=== PATIENT | female | born 1965 | race Caucasian/White ===

== ENCOUNTER 2024-09-30 14:30 | Inpatient (IN) | payer OTHER, MEDICAID ==
[2024-09-30] MEDS: Sodium Chloride 0.9% 10 ML Syringe FLUSH PRN (15:31)
[2024-09-30] MEDS: Ondansetron 4 MG/2 ML SDV IVPUSH ONE (15:59)
[2024-09-30 16:07] LABS: APPEARANCE,URINE SLT CLOUDY (Clear); GLUCOSE,URINE NEGATIVE (Negative); OCCULT BLOOD,URINE NEGATIVE (Negative)
[2024-09-30 16:43] LABS: PCO2 VENOUS 32.0 mmHg (41-51); PH,VENOUS 7.43 (7.30-7.40); PO2 VENOUS 123.0 mmHG (40-80)
[2024-09-30 16:44] LABS: BASE EXCESS VENOUS -2.3 (-4.0-2.0); BICARBONATE,VENOUS 21.2 meq/L (22-26); O2 SATURATION VENOUS 100
[2024-09-30] MEDS: 50% Dextrose in Water 50 ML Syringe IVPUSH PRN (16:48)
[2024-09-30 16:49] LABS: BASOPHILS ABSOLUTE AUTO 0.0 K/mm3 (0.0-0.2); BASOPHILS PERCENT AUTO 0.2 % (0.0-1.0); EOSINOPHILS ABSOLUTE AUTO 0.1 K/mm3 (0.0-0.4); EOSINOPHILS PERCENT AUTO 0.3 % (0.0-6.0); IMMATURE GRAN ABSOLUTE AUTO 0.20 K/mm3 (0.00-0.05); IMMATURE GRAN PERCENT AUTO 1.0 % (0.0-0.4); LYMPHOCYTES ABSOLUTE AUTO 2.3 K/mm3 (1.0-4.8); LYMPHOCYTES PERCENT AUTO 11.6 % (24.0-44.0); MEAN PLATELET VOLUME 10.6 fl (9.4-12.3); MONOCYTES ABSOLUTE AUTO 1.5 K/mm3 (0.0-0.8); MONOCYTES PERCENT AUTO 7.6 % (0.0-8.0); NEUTROPHILS ABSOLUTE AUTO 15.4 K/mm3 (1.8-7.7); NEUTROPHILS PERCENT AUTO 79.3 % (41.0-71.0); NRBC ABSOLUTE 0.02 (0.00-0.02); NRBC PERCENT 0.1 % (0.0-0.2); PLATELET COUNT,PLT 276 K/mm3 (150-400); RED BLOOD CELL COUNT 3.40 M/mm3 (4.10-5.30); WHITE BLOOD CELL COUNT,WBC 19.48 K/mm3 (3.9-11.3)
[2024-09-30 17:04] LABS: SQUAMOUS EPITHELIAL CELLS,UR 0-5 /hpf (0-5)
[2024-09-30 17:15] LABS: A/G RATIO 0.9 (1-2); ALANINE AMINOTRANSFERASE,ALT 74 U/L (14-59); ASPARTATE AMNIOTRANSFERASE,AST 140 U/L (15-37); BILIRUBIN TOTAL 5.6 mg/dL (0.2-1.0); BLOOD UREA NITROGEN,BUN 23 mg/dL (7-18); CARBON DIOXIDE,CO2 27 mEq/L (21-32); CHLORIDE,CL 85 mEq/L (98-107); ESTIMATED GFR 40 mL/min (>60); POTASSIUM,K 4.3 mEq/L (3.5-5.1); SODIUM,NA 127 mEq/L (136-145); TROPONIN I HIGH SENSITIVITY 13 pg/mL (<=51); TSH 1.732 uIU/mL (0.358-3.74)
[2024-09-30] MEDS: Albuterol 0.083% 2.5 MG/3 ML Neb Soln NEB ONE (17:19)
[2024-09-30 17:20] LABS: ETHANOL BLOOD MEDICAL 0.00 gm% (0.00); GLUCOSE RANDOM 2 mg/dL (70-99)
[2024-09-30 17:21] LABS: CREATININE 1.5 mg/dL (0.55-1.02)
[2024-09-30 17:22] LABS: PROTEIN TOTAL,TP 6.6 g/dl (6.4-8.2)
[2024-09-30] MEDS: Lactated Ringers 1,000 ML IV ONE (17:40)
[2024-09-30] MEDS: Lactated Ringers 1,000 ML ONE (18:47)
[2024-09-30] MEDS: Lactulose Soln 10 GM/15 ML 30 ML UD Cup PO SCH (19:50)
[2024-09-30 20:22] LABS: CREATINE KINASE,CK 173.0 U/L (26-192); PHOSPHORUS 6.3 mg/dL (2.6-4.7)
[2024-09-30] MEDS: Ondansetron 4 MG/2 ML SDV IVPUSH PRN (20:31)
[2024-09-30 21:04] LABS: INR 1.64
[2024-10-01] MEDS: Midazolam 1 MG/ML 2 ML SDV IVPUSH ONE (00:21)
[2024-10-01 04:43] LABS: BASOPHILS ABSOLUTE AUTO 0.0 K/mm3 (0.0-0.2); BASOPHILS PERCENT AUTO 0.2 % (0.0-1.0); EOSINOPHILS ABSOLUTE AUTO 0.1 K/mm3 (0.0-0.4); EOSINOPHILS PERCENT AUTO 0.6 % (0.0-6.0); IMMATURE GRAN ABSOLUTE AUTO 0.14 K/mm3 (0.00-0.05); IMMATURE GRAN PERCENT AUTO 0.6 % (0.0-0.4); LYMPHOCYTES ABSOLUTE AUTO 2.2 K/mm3 (1.0-4.8); LYMPHOCYTES PERCENT AUTO 10.2 % (24.0-44.0); MEAN PLATELET VOLUME 10.5 fl (9.4-12.3); MONOCYTES ABSOLUTE AUTO 0.8 K/mm3 (0.0-0.8); MONOCYTES PERCENT AUTO 3.5 % (0.0-8.0); NEUTROPHILS ABSOLUTE AUTO 18.5 K/mm3 (1.8-7.7); NEUTROPHILS PERCENT AUTO 84.9 % (41.0-71.0); NRBC ABSOLUTE 0.00 (0.00-0.02); NRBC PERCENT 0.0 % (0.0-0.2); PLATELET COUNT,PLT 254 K/mm3 (150-400); RED BLOOD CELL COUNT 2.78 M/mm3 (4.10-5.30); WHITE BLOOD CELL COUNT,WBC 21.76 K/mm3 (3.9-11.3)
[2024-10-01 05:18] LABS: A/G RATIO 0.8 (1-2); ALANINE AMINOTRANSFERASE,ALT 66.0 U/L (14-59); ASPARTATE AMNIOTRANSFERASE,AST 150.0 U/L (15-37); BILIRUBIN TOTAL 4.7 mg/dL (0.2-1.0); BLOOD UREA NITROGEN,BUN 28.0 mg/dL (7-18); CARBON DIOXIDE,CO2 19.0 mEq/L (21-32); CHLORIDE,CL 86.0 mEq/L (98-107); EST CRCL DRUG DOSING (CG) 21.79 mL/min; ESTIMATED GFR 24.0 mL/min (>60); GLUCOSE RANDOM 197.0 mg/dL (70-99); POTASSIUM,K 3.0 mEq/L (3.5-5.1); SODIUM,NA 126.0 mEq/L (136-145)
[2024-10-01 05:24] LABS: CREATININE 2.3 mg/dL (0.55-1.02)
[2024-10-01 05:25] LABS: PROTEIN TOTAL,TP 5.6 g/dl (6.4-8.2)
[2024-10-01] MEDS ORDERED: Naloxone 0.4 MG/ML SDV IVPUSH PRN (12:23)
[2024-10-01 12:28] LABS: BLOOD UREA NITROGEN,BUN 28.0 mg/dL (7-18); CARBON DIOXIDE,CO2 22.0 mEq/L (21-32); CHLORIDE,CL 93.0 mEq/L (98-107); CREATININE 2.0 mg/dL (0.55-1.02); EST CRCL DRUG DOSING (CG) 25.05 mL/min; ESTIMATED GFR 28.0 mL/min (>60); GLUCOSE RANDOM 139.0 mg/dL (70-99); POTASSIUM,K 3.4 mEq/L (3.5-5.1); SODIUM,NA 128.0 mEq/L (136-145)
[2024-10-01] MEDS: Benzocaine/Cetylpyridinium/Menthol Lozenge MUCMEM PRN (13:06)
[2024-10-01 13:31] LABS: BUPRENORPHINE SCREEN,URINE NEGATIVE (CUTOFF=10); METHADONE SCREEN, URINE NEGATIVE (CUTOFF=200); METHAMPHETAMINES SCREEN, URINE NEGATIVE (CUTOFF=500); OXYCODONE SCREEN,URINE NEGATIVE (CUT0FF=100); THC SCREEN,URINE 20 NG/ML NEGATIVE (CUTOFF=50)
[2024-10-01 13:54] LABS: AMPHETAMINES SCREEN, URINE NEGATIVE (CUTOFF=500)
[2024-10-01] MEDS: Heparin Sodium 5,000 Units/ML Vial SUBCUT SCH (18:14)
[2024-10-01] MEDS: Potassium Chloride 20 MEQ Tab.ER PO SCH (21:57)
[2024-10-02 03:40] LABS: BASOPHILS ABSOLUTE AUTO 0.0 K/mm3 (0.0-0.2); BASOPHILS PERCENT AUTO 0.1 % (0.0-1.0); EOSINOPHILS ABSOLUTE AUTO 0.0 K/mm3 (0.0-0.4); EOSINOPHILS PERCENT AUTO 0.0 % (0.0-6.0); IMMATURE GRAN ABSOLUTE AUTO 0.13 K/mm3 (0.00-0.05); IMMATURE GRAN PERCENT AUTO 0.8 % (0.0-0.4); LYMPHOCYTES ABSOLUTE AUTO 1.6 K/mm3 (1.0-4.8); LYMPHOCYTES PERCENT AUTO 9.7 % (24.0-44.0); MEAN PLATELET VOLUME 10.3 fl (9.4-12.3); MONOCYTES ABSOLUTE AUTO 0.5 K/mm3 (0.0-0.8); MONOCYTES PERCENT AUTO 3.2 % (0.0-8.0); NEUTROPHILS ABSOLUTE AUTO 14.4 K/mm3 (1.8-7.7); NEUTROPHILS PERCENT AUTO 86.2 % (41.0-71.0); NRBC ABSOLUTE 0.00 (0.00-0.02); NRBC PERCENT 0.0 % (0.0-0.2); PLATELET COUNT,PLT 186 K/mm3 (150-400); RED BLOOD CELL COUNT 2.69 M/mm3 (4.10-5.30); WHITE BLOOD CELL COUNT,WBC 16.66 K/mm3 (3.9-11.3)
[2024-10-02 04:08] LABS: A/G RATIO 0.8 (1-2); ALANINE AMINOTRANSFERASE,ALT 80.0 U/L (14-59); ASPARTATE AMNIOTRANSFERASE,AST 181.0 U/L (15-37); BILIRUBIN TOTAL 4.0 mg/dL (0.2-1.0); BLOOD UREA NITROGEN,BUN 32.0 mg/dL (7-18); CARBON DIOXIDE,CO2 23.0 mEq/L (21-32); CHLORIDE,CL 99.0 mEq/L (98-107); CREATININE 1.4 mg/dL (0.55-1.02); EST CRCL DRUG DOSING (CG) 35.79 mL/min; ESTIMATED GFR 43.0 mL/min (>60); GLUCOSE RANDOM 104.0 mg/dL (70-99); POTASSIUM,K 3.3 mEq/L (3.5-5.1); PROTEIN TOTAL,TP 5.6 g/dl (6.4-8.2); SODIUM,NA 134.0 mEq/L (136-145)
[2024-10-02] MEDS: Formoterol/Mometasone 200-5 MCG 8.8 GM Inhaler INH SCH (08:43)
[2024-10-02] MEDS: Benzocaine 20% Oral Spray 59.2 ML Canister MUCMEM PRN (12:57)
[2024-10-02] MEDS: methylPREDNISolone Sodium Succinate 40 MG/1 ML SDV IVPUSH SCH (12:58)
[2024-10-03 05:41] LABS: BASOPHILS ABSOLUTE AUTO 0.0 K/mm3 (0.0-0.2); BASOPHILS PERCENT AUTO 0.1 % (0.0-1.0); EOSINOPHILS ABSOLUTE AUTO 0.0 K/mm3 (0.0-0.4); EOSINOPHILS PERCENT AUTO 0.0 % (0.0-6.0); IMMATURE GRAN ABSOLUTE AUTO 0.09 K/mm3 (0.00-0.05); IMMATURE GRAN PERCENT AUTO 0.9 % (0.0-0.4); LYMPHOCYTES ABSOLUTE AUTO 0.8 K/mm3 (1.0-4.8); LYMPHOCYTES PERCENT AUTO 8.1 % (24.0-44.0); MEAN PLATELET VOLUME 10.6 fl (9.4-12.3); MONOCYTES ABSOLUTE AUTO 0.1 K/mm3 (0.0-0.8); MONOCYTES PERCENT AUTO 1.3 % (0.0-8.0); NEUTROPHILS ABSOLUTE AUTO 8.8 K/mm3 (1.8-7.7); NEUTROPHILS PERCENT AUTO 89.6 % (41.0-71.0); NRBC ABSOLUTE 0.00 (0.00-0.02); NRBC PERCENT 0.0 % (0.0-0.2); PLATELET COUNT,PLT 167 K/mm3 (150-400); RED BLOOD CELL COUNT 2.53 M/mm3 (4.10-5.30); WHITE BLOOD CELL COUNT,WBC 9.78 K/mm3 (3.9-11.3)
[2024-10-03 06:27] LABS: A/G RATIO 0.8 (1-2); ALANINE AMINOTRANSFERASE,ALT 98.0 U/L (14-59); ASPARTATE AMNIOTRANSFERASE,AST 187.0 U/L (15-37); BILIRUBIN TOTAL 3.4 mg/dL (0.2-1.0); BLOOD UREA NITROGEN,BUN 34.0 mg/dL (7-18); CARBON DIOXIDE,CO2 22.0 mEq/L (21-32); CHLORIDE,CL 105.0 mEq/L (98-107); CREATININE 1.0 mg/dL (0.55-1.02); EST CRCL DRUG DOSING (CG) 50.11 mL/min; ESTIMATED GFR 65.0 mL/min (>60); GLUCOSE RANDOM 160.0 mg/dL (70-99); POTASSIUM,K 3.1 mEq/L (3.5-5.1); PROTEIN TOTAL,TP 5.7 g/dl (6.4-8.2); SODIUM,NA 139.0 mEq/L (136-145)
[2024-10-03] MEDS: Potassium Phosphates 30 MMOLE in Sodium Chloride 0.9% 500 ML IV ONE (10:06)
[2024-10-03] MEDS: Acetaminophen/HYDROcodone 325-5 MG Tab PO PRN (10:13)
[2024-10-03] MEDS: Potassium Chloride 20 MEQ Tab.ER PO ONE (10:13)
[2024-10-03 11:03] LABS: IRON,FE 124 ug/dL (50-170); PERCENT FE SATURATION 107 % (20-55)
[2024-10-03 19:42] LABS: ACTH 23.3 pg/mL (7.2-63.3)
[2024-10-04 06:30] LABS: BASOPHILS ABSOLUTE AUTO 0.0 K/mm3 (0.0-0.2); BASOPHILS PERCENT AUTO 0.1 % (0.0-1.0); EOSINOPHILS ABSOLUTE AUTO 0.0 K/mm3 (0.0-0.4); EOSINOPHILS PERCENT AUTO 0.1 % (0.0-6.0); IMMATURE GRAN ABSOLUTE AUTO 0.13 K/mm3 (0.00-0.05); IMMATURE GRAN PERCENT AUTO 1.3 % (0.0-0.4); LYMPHOCYTES ABSOLUTE AUTO 1.2 K/mm3 (1.0-4.8); LYMPHOCYTES PERCENT AUTO 11.7 % (24.0-44.0); MEAN PLATELET VOLUME 9.7 fl (9.4-12.3); MONOCYTES ABSOLUTE AUTO 0.3 K/mm3 (0.0-0.8); MONOCYTES PERCENT AUTO 3.4 % (0.0-8.0); NEUTROPHILS ABSOLUTE AUTO 8.3 K/mm3 (1.8-7.7); NEUTROPHILS PERCENT AUTO 83.4 % (41.0-71.0); NRBC ABSOLUTE 0.03 (0.00-0.02); NRBC PERCENT 0.3 % (0.0-0.2); PLATELET COUNT,PLT 159 K/mm3 (150-400); RED BLOOD CELL COUNT 2.53 M/mm3 (4.10-5.30); WHITE BLOOD CELL COUNT,WBC 9.97 K/mm3 (3.9-11.3)
[2024-10-04 07:10] LABS: A/G RATIO 0.8 (1-2); ALANINE AMINOTRANSFERASE,ALT 109.0 U/L (14-59); ASPARTATE AMNIOTRANSFERASE,AST 140.0 U/L (15-37); BILIRUBIN TOTAL 3.5 mg/dL (0.2-1.0); BLOOD UREA NITROGEN,BUN 40.0 mg/dL (7-18); CARBON DIOXIDE,CO2 24.0 mEq/L (21-32); CHLORIDE,CL 106.0 mEq/L (98-107); CREATININE 1.1 mg/dL (0.55-1.02); EST CRCL DRUG DOSING (CG) 45.55 mL/min; ESTIMATED GFR 58.0 mL/min (>60); GLUCOSE RANDOM 162.0 mg/dL (70-99); PHOSPHORUS 2.5 mg/dL (2.6-4.7); POTASSIUM,K 3.6 mEq/L (3.5-5.1); PROTEIN TOTAL,TP 6.2 g/dl (6.4-8.2); SODIUM,NA 140.0 mEq/L (136-145)
[2024-10-04] MEDS: Potassium Phosphates 30 MMOLE in Sodium Chloride 0.9% 500 ML IV ONE (10:07)
[2024-10-04] MEDS ORDERED: Metoprolol Tartrate 5 MG/5 ML SDV IVPUSH PRN (15:34)
[2024-10-04] MEDS: Metoprolol Tartrate 5 MG/5 ML SDV IVPUSH ONE (19:52)
[2024-10-05 06:00] LABS: A/G RATIO 0.8 (1-2); ALANINE AMINOTRANSFERASE,ALT 92.0 U/L (14-59); ASPARTATE AMNIOTRANSFERASE,AST 107.0 U/L (15-37); BILIRUBIN TOTAL 4.0 mg/dL (0.2-1.0); BLOOD UREA NITROGEN,BUN 35.0 mg/dL (7-18); CARBON DIOXIDE,CO2 23.0 mEq/L (21-32); CHLORIDE,CL 108.0 mEq/L (98-107); CREATININE 0.9 mg/dL (0.55-1.02); EST CRCL DRUG DOSING (CG) 55.68 mL/min; ESTIMATED GFR 74.0 mL/min (>60); GLUCOSE RANDOM 120.0 mg/dL (70-99); PHOSPHORUS 2.3 mg/dL (2.6-4.7); POTASSIUM,K 3.6 mEq/L (3.5-5.1); PROTEIN TOTAL,TP 5.7 g/dl (6.4-8.2); SODIUM,NA 141.0 mEq/L (136-145)
[2024-10-05] MEDS: Potassium Phosphates 30 MMOLE in Sodium Chloride 0.9% 500 ML IV ONE ×2 (11:44→12:18)
[2024-10-06 04:57] LABS: BLOOD UREA NITROGEN,BUN 31.0 mg/dL (7-18); CARBON DIOXIDE,CO2 24.0 mEq/L (21-32); CHLORIDE,CL 110.0 mEq/L (98-107); CREATININE 1.0 mg/dL (0.55-1.02); EST CRCL DRUG DOSING (CG) 50.11 mL/min; ESTIMATED GFR 65.0 mL/min (>60); GLUCOSE RANDOM 98.0 mg/dL (70-99); PHOSPHORUS 2.3 mg/dL (2.6-4.7); POTASSIUM,K 4.0 mEq/L (3.5-5.1); SODIUM,NA 144.0 mEq/L (136-145)
[2024-10-06] MEDS: Potassium Phosphates 30 MMOLE in Sodium Chloride 0.9% 500 ML IV ONE (10:43)
[2024-10-07 08:27] LABS: BLOOD UREA NITROGEN,BUN 29.0 mg/dL (7-18); CARBON DIOXIDE,CO2 22.0 mEq/L (21-32); CHLORIDE,CL 114.0 mEq/L (98-107); CREATININE 0.9 mg/dL (0.55-1.02); EST CRCL DRUG DOSING (CG) 55.68 mL/min; ESTIMATED GFR 74.0 mL/min (>60); GLUCOSE RANDOM 105.0 mg/dL (70-99); PHOSPHORUS 2.8 mg/dL (2.6-4.7); POTASSIUM,K 4.2 mEq/L (3.5-5.1); SODIUM,NA 146.0 mEq/L (136-145)
[2024-10-08] MEDS: Ondansetron 4 MG Tab.DIS PO PRN (00:53)
[2024-10-08 07:42] LABS: BLOOD UREA NITROGEN,BUN 26.0 mg/dL (7-18); CARBON DIOXIDE,CO2 25.0 mEq/L (21-32); CHLORIDE,CL 110.0 mEq/L (98-107); CREATININE 1.0 mg/dL (0.55-1.02); EST CRCL DRUG DOSING (CG) 50.11 mL/min; ESTIMATED GFR 65.0 mL/min (>60); GLUCOSE RANDOM 133.0 mg/dL (70-99); PHOSPHORUS 2.2 mg/dL (2.6-4.7); POTASSIUM,K 3.9 mEq/L (3.5-5.1); SODIUM,NA 145.0 mEq/L (136-145)
[2024-10-08 12:03] LABS: BASOPHILS ABSOLUTE AUTO 0.0 K/mm3 (0.0-0.2); BASOPHILS PERCENT AUTO 0.1 % (0.0-1.0); EOSINOPHILS ABSOLUTE AUTO 0.0 K/mm3 (0.0-0.4); EOSINOPHILS PERCENT AUTO 0.1 % (0.0-6.0); IMMATURE GRAN ABSOLUTE AUTO 1.10 K/mm3 (0.00-0.05); IMMATURE GRAN PERCENT AUTO 7.3 % (0.0-0.4); LYMPHOCYTES ABSOLUTE AUTO 3.8 K/mm3 (1.0-4.8); LYMPHOCYTES PERCENT AUTO 25.2 % (24.0-44.0); MEAN PLATELET VOLUME 11.6 fl (9.4-12.3); MONOCYTES ABSOLUTE AUTO 2.2 K/mm3 (0.0-0.8); MONOCYTES PERCENT AUTO 14.7 % (0.0-8.0); NEUTROPHILS ABSOLUTE AUTO 8.0 K/mm3 (1.8-7.7); NEUTROPHILS PERCENT AUTO 52.6 % (41.0-71.0); NRBC ABSOLUTE 0.28 (0.00-0.02); NRBC PERCENT 1.8 % (0.0-0.2); PLATELET COUNT,PLT 106 K/mm3 (150-400); RED BLOOD CELL COUNT 2.54 M/mm3 (4.10-5.30); WHITE BLOOD CELL COUNT,WBC 15.16 K/mm3 (3.9-11.3)
[2024-10-08] MEDS: Thiamine 200 MG/2 ML MDV IVPUSH SCH (14:28)
[2024-10-08] MEDS ORDERED: SODIUM CHLORIDE 0.9% IV SCH (15:00)
[2024-10-08] MEDS ORDERED: THIAMINE IV SCH (15:00)
[2024-10-08] MEDS: Lactulose Soln 10 GM/15 ML 30 ML UD Cup PO SCH (20:31)
[2024-10-09 08:07] LABS: A/G RATIO 0.7 (1-2); ALANINE AMINOTRANSFERASE,ALT 82.0 U/L (14-59); ASPARTATE AMNIOTRANSFERASE,AST 104.0 U/L (15-37); BILIRUBIN TOTAL 2.5 mg/dL (0.2-1.0); BLOOD UREA NITROGEN,BUN 26.0 mg/dL (7-18); CARBON DIOXIDE,CO2 25.0 mEq/L (21-32); CHLORIDE,CL 111.0 mEq/L (98-107); CREATININE 0.9 mg/dL (0.55-1.02); EST CRCL DRUG DOSING (CG) 55.68 mL/min; ESTIMATED GFR 74.0 mL/min (>60); GLUCOSE RANDOM 127.0 mg/dL (70-99); POTASSIUM,K 3.6 mEq/L (3.5-5.1); PROTEIN TOTAL,TP 5.7 g/dl (6.4-8.2); SODIUM,NA 143.0 mEq/L (136-145)
[2024-10-10 09:02] LABS: BLOOD UREA NITROGEN,BUN 28.0 mg/dL (7-18); CARBON DIOXIDE,CO2 26.0 mEq/L (21-32); CHLORIDE,CL 110.0 mEq/L (98-107); CREATININE 0.9 mg/dL (0.55-1.02); EST CRCL DRUG DOSING (CG) 55.68 mL/min; ESTIMATED GFR 74.0 mL/min (>60); GLUCOSE RANDOM 131.0 mg/dL (70-99); POTASSIUM,K 3.7 mEq/L (3.5-5.1); SODIUM,NA 140.0 mEq/L (136-145)
[2024-10-11] MEDS: Lactulose Soln 10 GM/15 ML 30 ML UD Cup PO SCH (06:47)
[2024-10-11 08:37] LABS: BLOOD UREA NITROGEN,BUN 27.0 mg/dL (7-18); CARBON DIOXIDE,CO2 28.0 mEq/L (21-32); CHLORIDE,CL 107.0 mEq/L (98-107); CREATININE 0.9 mg/dL (0.55-1.02); EST CRCL DRUG DOSING (CG) 55.68 mL/min; ESTIMATED GFR 74.0 mL/min (>60); GLUCOSE RANDOM 121.0 mg/dL (70-99); POTASSIUM,K 3.7 mEq/L (3.5-5.1); SODIUM,NA 140.0 mEq/L (136-145)
[2024-10-12 20:42] LABS: ANA BY ELISA, IGG W/RFX TO IFA None Detected (None Detected)
[2024-10-13 10:41] LABS: BASOPHILS ABSOLUTE AUTO 0.1 K/mm3 (0.0-0.2); BASOPHILS PERCENT AUTO 0.3 % (0.0-1.0); EOSINOPHILS ABSOLUTE AUTO 0.0 K/mm3 (0.0-0.4); EOSINOPHILS PERCENT AUTO 0.0 % (0.0-6.0); IMMATURE GRAN ABSOLUTE AUTO 0.70 K/mm3 (0.00-0.05); IMMATURE GRAN PERCENT AUTO 2.8 % (0.0-0.4); LYMPHOCYTES ABSOLUTE AUTO 2.7 K/mm3 (1.0-4.8); LYMPHOCYTES PERCENT AUTO 10.5 % (24.0-44.0); MEAN PLATELET VOLUME 11.1 fl (9.4-12.3); MONOCYTES ABSOLUTE AUTO 1.5 K/mm3 (0.0-0.8); MONOCYTES PERCENT AUTO 5.8 % (0.0-8.0); NEUTROPHILS ABSOLUTE AUTO 20.4 K/mm3 (1.8-7.7); NEUTROPHILS PERCENT AUTO 80.6 % (41.0-71.0); NRBC ABSOLUTE 0.06 (0.00-0.02); NRBC PERCENT 0.2 % (0.0-0.2); RED BLOOD CELL COUNT 2.33 M/mm3 (4.10-5.30); WHITE BLOOD CELL COUNT,WBC 25.36 K/mm3 (3.9-11.3)
[2024-10-13 10:45] LABS: PLATELET COUNT,PLT 213 K/mm3 (150-400)
[2024-10-13 11:34] LABS: A/G RATIO 0.5 (1-2); ALANINE AMINOTRANSFERASE,ALT 56.0 U/L (14-59); ASPARTATE AMNIOTRANSFERASE,AST 70.0 U/L (15-37); BILIRUBIN TOTAL 2.4 mg/dL (0.2-1.0); BLOOD UREA NITROGEN,BUN 26.0 mg/dL (7-18); CARBON DIOXIDE,CO2 24.0 mEq/L (21-32); CHLORIDE,CL 105.0 mEq/L (98-107); CREATININE 1.0 mg/dL (0.55-1.02); EST CRCL DRUG DOSING (CG) 50.11 mL/min; ESTIMATED GFR 65.0 mL/min (>60); GLUCOSE RANDOM 159.0 mg/dL (70-99); POTASSIUM,K 3.5 mEq/L (3.5-5.1); PROTEIN TOTAL,TP 5.7 g/dl (6.4-8.2); SODIUM,NA 138.0 mEq/L (136-145)
[2024-10-13 11:48] LABS: APPEARANCE,URINE SLT CLOUDY (Clear); GLUCOSE,URINE NEGATIVE (Negative); OCCULT BLOOD,URINE TRACE-INTACT (Negative)
[2024-10-13 14:46] LABS: INR 1.22
[2024-10-13 15:18] LABS: LACTIC ACID 1.7 mmol/L (0.4-2.0)
[2024-10-14 07:26] LABS: BASOPHILS ABSOLUTE AUTO 0.1 K/mm3 (0.0-0.2); BASOPHILS PERCENT AUTO 0.3 % (0.0-1.0); EOSINOPHILS ABSOLUTE AUTO 0.1 K/mm3 (0.0-0.4); EOSINOPHILS PERCENT AUTO 0.2 % (0.0-6.0); IMMATURE GRAN ABSOLUTE AUTO 0.97 K/mm3 (0.00-0.05); IMMATURE GRAN PERCENT AUTO 3.2 % (0.0-0.4); LYMPHOCYTES ABSOLUTE AUTO 2.8 K/mm3 (1.0-4.8); LYMPHOCYTES PERCENT AUTO 9.3 % (24.0-44.0); MEAN PLATELET VOLUME 10.9 fl (9.4-12.3); MONOCYTES ABSOLUTE AUTO 2.0 K/mm3 (0.0-0.8); MONOCYTES PERCENT AUTO 6.7 % (0.0-8.0); NEUTROPHILS ABSOLUTE AUTO 24.2 K/mm3 (1.8-7.7); NEUTROPHILS PERCENT AUTO 80.3 % (41.0-71.0); NRBC ABSOLUTE 0.05 (0.00-0.02); NRBC PERCENT 0.2 % (0.0-0.2); PLATELET COUNT,PLT 230 K/mm3 (150-400); RED BLOOD CELL COUNT 2.20 M/mm3 (4.10-5.30); WHITE BLOOD CELL COUNT,WBC 30.11 K/mm3 (3.9-11.3)
[2024-10-14 07:49] LABS: A/G RATIO 0.4 (1-2); ALANINE AMINOTRANSFERASE,ALT 46.0 U/L (14-59); ASPARTATE AMNIOTRANSFERASE,AST 48.0 U/L (15-37); BILIRUBIN TOTAL 2.2 mg/dL (0.2-1.0); BLOOD UREA NITROGEN,BUN 23.0 mg/dL (7-18); CARBON DIOXIDE,CO2 26.0 mEq/L (21-32); CHLORIDE,CL 105.0 mEq/L (98-107); CREATININE 0.8 mg/dL (0.55-1.02); EST CRCL DRUG DOSING (CG) 62.63 mL/min; ESTIMATED GFR 85.0 mL/min (>60); GLUCOSE RANDOM 114.0 mg/dL (70-99); POTASSIUM,K 3.1 mEq/L (3.5-5.1); PROTEIN TOTAL,TP 5.7 g/dl (6.4-8.2); SODIUM,NA 139.0 mEq/L (136-145)
[2024-10-14] MEDS ORDERED: Non-Formulary Medication 1 Each (Fluticasone/Vilanterol [Breo Ellipta 50-25 Mcg Inhaler] 1 IH SCH (09:45)
[2024-10-14] MEDS: Potassium Chloride 20 MEQ Tab.ER PO SCH (10:11)
[2024-10-14 10:18] LABS: PHOSPHORUS 3.3 mg/dL (2.6-4.7)
[2024-10-14] MEDS: Potassium Bicarbonate/Cit Ac 20 MEQ Effervescent Tab PO SCH (10:56)
[2024-10-14] MEDS: Magnesium Sulfate 2 GM/50 mL 2 GM in Premix Bag 1 BAG IV ONE (10:56)
[2024-10-14] MEDS: Sucralfate Suspension 1 GM/10 ML Cup PO SCH (16:48)
[2024-10-14] MEDS ORDERED: Metoprolol Tartrate 5 MG/5 ML SDV IVPUSH PRN (19:18)
[2024-10-15 07:53] LABS: BASOPHILS ABSOLUTE AUTO 0.1 K/mm3 (0.0-0.2); BASOPHILS PERCENT AUTO 0.4 % (0.0-1.0); EOSINOPHILS ABSOLUTE AUTO 0.3 K/mm3 (0.0-0.4); EOSINOPHILS PERCENT AUTO 1.0 % (0.0-6.0); IMMATURE GRAN ABSOLUTE AUTO 0.81 K/mm3 (0.00-0.05); IMMATURE GRAN PERCENT AUTO 3.0 % (0.0-0.4); LYMPHOCYTES ABSOLUTE AUTO 2.3 K/mm3 (1.0-4.8); LYMPHOCYTES PERCENT AUTO 8.5 % (24.0-44.0); MEAN PLATELET VOLUME 10.9 fl (9.4-12.3); MONOCYTES ABSOLUTE AUTO 1.8 K/mm3 (0.0-0.8); MONOCYTES PERCENT AUTO 6.6 % (0.0-8.0); NEUTROPHILS ABSOLUTE AUTO 21.5 K/mm3 (1.8-7.7); NEUTROPHILS PERCENT AUTO 80.5 % (41.0-71.0); NRBC ABSOLUTE 0.03 (0.00-0.02); NRBC PERCENT 0.1 % (0.0-0.2); PLATELET COUNT,PLT 252 K/mm3 (150-400); RED BLOOD CELL COUNT 2.38 M/mm3 (4.10-5.30); WHITE BLOOD CELL COUNT,WBC 26.68 K/mm3 (3.9-11.3)
[2024-10-15 08:30] LABS: A/G RATIO 0.4 (1-2); ALANINE AMINOTRANSFERASE,ALT 40.0 U/L (14-59); ASPARTATE AMNIOTRANSFERASE,AST 51.0 U/L (15-37); BILIRUBIN TOTAL 2.4 mg/dL (0.2-1.0); BLOOD UREA NITROGEN,BUN 23.0 mg/dL (7-18); CARBON DIOXIDE,CO2 27.0 mEq/L (21-32); CHLORIDE,CL 105.0 mEq/L (98-107); CREATININE 0.9 mg/dL (0.55-1.02); EST CRCL DRUG DOSING (CG) 55.68 mL/min; ESTIMATED GFR 74.0 mL/min (>60); GLUCOSE RANDOM 116.0 mg/dL (70-99); POTASSIUM,K 3.6 mEq/L (3.5-5.1); PROTEIN TOTAL,TP 6.2 g/dl (6.4-8.2); SODIUM,NA 137.0 mEq/L (136-145)
[2024-10-15] MEDS: Magnesium Sulfate 2 GM/50 mL 2 GM in Premix Bag 1 BAG IV ONE (10:42)
[2024-10-15] MEDS: Potassium Chloride 20 MEQ Tab.ER PO ONE ×2 (10:45→17:03)
[2024-10-15] MEDS ORDERED: Benzocaine/Cetylpyridinium/Menthol Lozenge MUCMEM PRN (13:51)
[2024-10-16] MEDS: Acetaminophen/HYDROcodone 325-5 MG Tab PO PRN (02:11)
[2024-10-16 07:55] LABS: BASOPHILS ABSOLUTE AUTO 0.1 K/mm3 (0.0-0.2); BASOPHILS PERCENT AUTO 0.4 % (0.0-1.0); EOSINOPHILS ABSOLUTE AUTO 0.4 K/mm3 (0.0-0.4); EOSINOPHILS PERCENT AUTO 1.5 % (0.0-6.0); IMMATURE GRAN ABSOLUTE AUTO 0.70 K/mm3 (0.00-0.05); IMMATURE GRAN PERCENT AUTO 3.0 % (0.0-0.4); LYMPHOCYTES ABSOLUTE AUTO 2.5 K/mm3 (1.0-4.8); LYMPHOCYTES PERCENT AUTO 10.8 % (24.0-44.0); MEAN PLATELET VOLUME 10.9 fl (9.4-12.3); MONOCYTES ABSOLUTE AUTO 1.6 K/mm3 (0.0-0.8); MONOCYTES PERCENT AUTO 7.1 % (0.0-8.0); NEUTROPHILS ABSOLUTE AUTO 17.9 K/mm3 (1.8-7.7); NEUTROPHILS PERCENT AUTO 77.2 % (41.0-71.0); NRBC ABSOLUTE 0.06 (0.00-0.02); NRBC PERCENT 0.3 % (0.0-0.2); PLATELET COUNT,PLT 297 K/mm3 (150-400); RED BLOOD CELL COUNT 2.09 M/mm3 (4.10-5.30); WHITE BLOOD CELL COUNT,WBC 23.23 K/mm3 (3.9-11.3)
[2024-10-16 08:39] LABS: A/G RATIO 0.3 (1-2); ALANINE AMINOTRANSFERASE,ALT 33.0 U/L (14-59); ASPARTATE AMNIOTRANSFERASE,AST 42.0 U/L (15-37); BILIRUBIN TOTAL 2.1 mg/dL (0.2-1.0); BLOOD UREA NITROGEN,BUN 22.0 mg/dL (7-18); CARBON DIOXIDE,CO2 27.0 mEq/L (21-32); CHLORIDE,CL 105.0 mEq/L (98-107); CREATININE 0.9 mg/dL (0.55-1.02); EST CRCL DRUG DOSING (CG) 55.68 mL/min; ESTIMATED GFR 74.0 mL/min (>60); GLUCOSE RANDOM 118.0 mg/dL (70-99); POTASSIUM,K 3.2 mEq/L (3.5-5.1); PROTEIN TOTAL,TP 5.7 g/dl (6.4-8.2); SODIUM,NA 139.0 mEq/L (136-145)
[2024-10-16] MEDS: Potassium Bicarbonate/Cit Ac 20 MEQ Effervescent Tab PO ONE (14:39)
[2024-10-18 06:02] LABS: BASOPHILS ABSOLUTE AUTO 0.2 K/mm3 (0.0-0.2); BASOPHILS PERCENT AUTO 0.6 % (0.0-1.0); EOSINOPHILS ABSOLUTE AUTO 0.5 K/mm3 (0.0-0.4); EOSINOPHILS PERCENT AUTO 1.8 % (0.0-6.0); IMMATURE GRAN ABSOLUTE AUTO 0.91 K/mm3 (0.00-0.05); IMMATURE GRAN PERCENT AUTO 3.6 % (0.0-0.4); LYMPHOCYTES ABSOLUTE AUTO 3.5 K/mm3 (1.0-4.8); LYMPHOCYTES PERCENT AUTO 13.8 % (24.0-44.0); MEAN PLATELET VOLUME 10.3 fl (9.4-12.3); MONOCYTES ABSOLUTE AUTO 1.5 K/mm3 (0.0-0.8); MONOCYTES PERCENT AUTO 5.8 % (0.0-8.0); NEUTROPHILS ABSOLUTE AUTO 18.9 K/mm3 (1.8-7.7); NEUTROPHILS PERCENT AUTO 74.4 % (41.0-71.0); NRBC ABSOLUTE 0.06 (0.00-0.02); NRBC PERCENT 0.2 % (0.0-0.2); RED BLOOD CELL COUNT 2.29 M/mm3 (4.10-5.30); WHITE BLOOD CELL COUNT,WBC 25.34 K/mm3 (3.9-11.3)
[2024-10-18 06:08] LABS: PLATELET COUNT,PLT 373 K/mm3 (150-400)
[2024-10-18 06:26] LABS: A/G RATIO 0.3 (1-2); ALANINE AMINOTRANSFERASE,ALT 32.0 U/L (14-59); BILIRUBIN TOTAL 2.1 mg/dL (0.2-1.0); BLOOD UREA NITROGEN,BUN 16.0 mg/dL (7-18); CARBON DIOXIDE,CO2 30.0 mEq/L (21-32); CHLORIDE,CL 102.0 mEq/L (98-107); CREATININE 0.7 mg/dL (0.55-1.02); EST CRCL DRUG DOSING (CG) 71.58 mL/min; ESTIMATED GFR 100.0 mL/min (>60); GLUCOSE RANDOM 112.0 mg/dL (70-99); PHOSPHORUS 3.0 mg/dL (2.6-4.7); PROTEIN TOTAL,TP 6.1 g/dl (6.4-8.2); SODIUM,NA 137.0 mEq/L (136-145)
[2024-10-18 06:30] LABS: ASPARTATE AMNIOTRANSFERASE,AST 68.0 U/L (15-37); POTASSIUM,K 3.8 mEq/L (3.5-5.1)
[2024-10-18] MEDS: Potassium Chloride 20 MEQ Tab.ER PO ONE (10:22)
[2024-10-18] MEDS: Magnesium Sulf/Wat 4 GM/50 mL 4 GM in Premix Bag 1 BAG IV ONE (10:24)
[2024-10-19 05:30] LABS: BASOPHILS ABSOLUTE AUTO 0.2 K/mm3 (0.0-0.2); BASOPHILS PERCENT AUTO 0.6 % (0.0-1.0); EOSINOPHILS ABSOLUTE AUTO 0.5 K/mm3 (0.0-0.4); EOSINOPHILS PERCENT AUTO 1.9 % (0.0-6.0); IMMATURE GRAN ABSOLUTE AUTO 1.09 K/mm3 (0.00-0.05); IMMATURE GRAN PERCENT AUTO 4.2 % (0.0-0.4); LYMPHOCYTES ABSOLUTE AUTO 4.0 K/mm3 (1.0-4.8); LYMPHOCYTES PERCENT AUTO 15.1 % (24.0-44.0); MEAN PLATELET VOLUME 10.0 fl (9.4-12.3); MONOCYTES ABSOLUTE AUTO 1.6 K/mm3 (0.0-0.8); MONOCYTES PERCENT AUTO 6.3 % (0.0-8.0); NEUTROPHILS ABSOLUTE AUTO 18.8 K/mm3 (1.8-7.7); NEUTROPHILS PERCENT AUTO 71.9 % (41.0-71.0); NRBC ABSOLUTE 0.10 (0.00-0.02); NRBC PERCENT 0.4 % (0.0-0.2); PLATELET COUNT,PLT 423 K/mm3 (150-400); RED BLOOD CELL COUNT 2.33 M/mm3 (4.10-5.30); WHITE BLOOD CELL COUNT,WBC 26.20 K/mm3 (3.9-11.3)
[2024-10-19 06:16] LABS: A/G RATIO 0.3 (1-2); ALANINE AMINOTRANSFERASE,ALT 33.0 U/L (14-59); ASPARTATE AMNIOTRANSFERASE,AST 76.0 U/L (15-37); BILIRUBIN TOTAL 1.8 mg/dL (0.2-1.0); BLOOD UREA NITROGEN,BUN 12.0 mg/dL (7-18); CARBON DIOXIDE,CO2 31.0 mEq/L (21-32); CHLORIDE,CL 102.0 mEq/L (98-107); CREATININE 0.7 mg/dL (0.55-1.02); EST CRCL DRUG DOSING (CG) 71.58 mL/min; ESTIMATED GFR 100.0 mL/min (>60); GLUCOSE RANDOM 90.0 mg/dL (70-99); PHOSPHORUS 3.0 mg/dL (2.6-4.7); POTASSIUM,K 3.1 mEq/L (3.5-5.1); PROTEIN TOTAL,TP 6.1 g/dl (6.4-8.2); SODIUM,NA 139.0 mEq/L (136-145)
[2024-10-19] MEDS: Potassium Bicarbonate/Cit Ac 20 MEQ Effervescent Tab PO ONE (09:50)
[2024-10-22 07:38] LABS: HFE PCR SPECIMEN Whole Blood; S65C HEMOCHROMATOSIS MUTATION Negative
[2024-10-22 07:39] LABS: C282Y HEMOCHROMATOSIS MUTATION Negative; H63D HEMOCHROMATOSIS MUTATION Negative
== END 2024-10-19 13:05 | DRG 871 ==
LOC: EDBD 14:30 → JD.ED 14:30 → MERGE 19:15 → JD.ICU 19:15 → JD.MS 10-03 19:45
PROVIDERS: ADMIT Family Medicine; ATTEND Student in an Organized Health Care Education/Training Program
PROC: 3E03329 Introduction of Other Anti-infective into Peripheral Vein, Percutaneous Approach (ICD-10-PCS; 2024-09-30)
PROC: 02HV33Z Insertion of Infusion Device into Superior Vena Cava, Percutaneous Approach (ICD-10-PCS; 2024-10-01)
PROC: B548ZZA Ultrasonography of Superior Vena Cava, Guidance (ICD-10-PCS; 2024-10-01)
PROC: 3E033XZ Introduction of Vasopressor into Peripheral Vein, Percutaneous Approach (ICD-10-PCS; 2024-10-01)
PROC: 0T9B70Z Drainage of Bladder with Drainage Device, Via Natural or Artificial Opening (ICD-10-PCS; principal; 2024-10-16)
DX: A41.9 Sepsis, unspecified organism (principal); J96.01 Acute respiratory failure with hypoxia; R57.1 Hypovolemic shock; K72.91 Hepatic failure, unspecified with coma; E15 Nondiabetic hypoglycemic coma; J45.901 Unspecified asthma with (acute) exacerbation; E87.20 Acidosis, unspecified; N17.9 Acute kidney failure, unspecified; E87.1 Hypo-osmolality and hyponatremia; J21.9 Acute bronchiolitis, unspecified; N30.01 Acute cystitis with hematuria; Z66 Do not resuscitate; Z91.030 Bee allergy status; F41.9 Anxiety disorder, unspecified; E86.0 Dehydration; I50.9 Heart failure, unspecified; Z79.52 Long term (current) use of systemic steroids; E87.8 Other disorders of electrolyte and fluid balance, not elsewhere classified; R74.01 Elevation of levels of liver transaminase levels; K20.90 Esophagitis, unspecified without bleeding; R73.9 Hyperglycemia, unspecified; K86.89 Other specified diseases of pancreas; E87.6 Hypokalemia; G62.9 Polyneuropathy, unspecified; F32.A Depression, unspecified; E80.6 Other disorders of bilirubin metabolism; K52.9 Noninfective gastroenteritis and colitis, unspecified; D53.9 Nutritional anemia, unspecified; E53.8 Deficiency of other specified B group vitamins; E83.39 Other disorders of phosphorus metabolism; R00.0 Tachycardia, unspecified; R53.81 Other malaise; R26.2 Difficulty in walking, not elsewhere classified; K70.31 Alcoholic cirrhosis of liver with ascites; F10.90 Alcohol use, unspecified, uncomplicated; R33.9 Retention of urine, unspecified; M54.2 Cervicalgia
CPT/HCPCS: 36410; 36415; 36556; 51701; 51702; 51798; 70450; 70450-26; 71045; 71045-26; 71250; 71250-26; 74176; 74176-26; 80048; 80053; 80306; 80307; 81001; 81256; 82024; 82140; 82533; 82550; 82607; 82728; 82746; 82803; 82947; 83036; 83540; 83605; 83690; 83735; 83880; 84100; 84425; 84443; 84466; 84484; 85014; 85018; 85025; 85610; 86038; 86140; 87040; 87086; 87088; 87186; 87641; 93005; 93010; 94640; 94760; 94761; 96361; 96365; 96375; 97110-GO; 97110-GP; 97112-GP; 97162-GP; 97166-GO; 97530-GO; 97530-GP; 97535-GO; 99223; 99231; 99232; 99233; 99239; 99285; 99285-25; A9270-GY; C1758; J0696; J1171; J1644; J1650; J2250; J2405; J2470; J2543; J2765; J2919; J3411; J3475; J3480; J3490; J7030; J7040; J7050; J7070; J7120; J7512; S5010

== ENCOUNTER 2024-11-05 01:45 | Emergency (ER) | payer OTHER, MEDICAID ==
[2024-11-05] MEDS ORDERED: Sodium Chloride 0.9% 10 ML Syringe FLUSH PRN (01:58)
[2024-11-05 02:11] LABS: BASOPHILS ABSOLUTE AUTO 0.1 K/mm3 (0.0-0.2); BASOPHILS PERCENT AUTO 0.5 % (0.0-1.0); EOSINOPHILS ABSOLUTE AUTO 1.2 K/mm3 (0.0-0.4); EOSINOPHILS PERCENT AUTO 6.6 % (0.0-6.0); IMMATURE GRAN ABSOLUTE AUTO 0.15 K/mm3 (0.00-0.05); IMMATURE GRAN PERCENT AUTO 0.8 % (0.0-0.4); LYMPHOCYTES ABSOLUTE AUTO 3.1 K/mm3 (1.0-4.8); LYMPHOCYTES PERCENT AUTO 16.9 % (24.0-44.0); MEAN PLATELET VOLUME 9.3 fl (9.4-12.3); MONOCYTES ABSOLUTE AUTO 1.2 K/mm3 (0.0-0.8); MONOCYTES PERCENT AUTO 6.3 % (0.0-8.0); NEUTROPHILS ABSOLUTE AUTO 12.6 K/mm3 (1.8-7.7); NEUTROPHILS PERCENT AUTO 68.9 % (41.0-71.0); NRBC ABSOLUTE 0.00 (0.00-0.02); NRBC PERCENT 0.0 % (0.0-0.2); PLATELET COUNT,PLT 285 K/mm3 (150-400); RED BLOOD CELL COUNT 3.11 M/mm3 (4.10-5.30); WHITE BLOOD CELL COUNT,WBC 18.33 K/mm3 (3.9-11.3)
[2024-11-05 02:34] LABS: A/G RATIO 0.4 (1-2); ALANINE AMINOTRANSFERASE,ALT 17 U/L (14-59); ASPARTATE AMNIOTRANSFERASE,AST 46 U/L (15-37); BILIRUBIN TOTAL 1.6 mg/dL (0.2-1.0); BLOOD UREA NITROGEN,BUN 8 mg/dL (7-18); CHLORIDE,CL 92 mEq/L (98-107); CREATININE 0.9 mg/dL (0.55-1.02); ESTIMATED GFR 74 mL/min (>60); GLUCOSE RANDOM 95 mg/dL (70-99); PROTEIN TOTAL,TP 6.1 g/dl (6.4-8.2); SODIUM,NA 137 mEq/L (136-145)
[2024-11-05 02:43] LABS: CARBON DIOXIDE,CO2 42 mEq/L (21-32); POTASSIUM,K 2.0 mEq/L (3.5-5.1)
[2024-11-05 02:45] LABS: APPEARANCE,URINE SLT CLOUDY (Clear); GLUCOSE,URINE NEGATIVE (Negative); OCCULT BLOOD,URINE 2+ (Negative)
[2024-11-05] MEDS: Lactated Ringers 500 ML IV SCH (03:05)
[2024-11-05] MEDS: Magnesium Sulfat/D5W 1GM/100ML 1 GM in Premix Bag 1 BAG IV ONE (03:06)
[2024-11-05 03:11] LABS: BASE EXCESS VENOUS 21.1 (-4.0-2.0); BICARBONATE,VENOUS 41.6 meq/L (22-26); O2 SATURATION VENOUS 97.7; PCO2 VENOUS 30.0 mmHg (41-51); PH,VENOUS 7.75 (7.30-7.40); PO2 VENOUS 73.0 mmHG (40-80)
[2024-11-05 03:12] LABS: EPITHELIAL CELLS,URINE 0-5 /hpf (0-5); FINE GRANULAR CASTS,URINE 0-5 /lpf (0-5); WBC CLUMPS,URINE RARE /hpf (NOT SEEN)
[2024-11-05] MEDS: Potassium Bicarbonate/Cit Ac 20 MEQ Effervescent Tab PO ONE (03:18)
[2024-11-05 03:27] LABS: LACTIC ACID 1.2 mmol/L (0.4-2.0)
[2024-11-05 07:39] LABS: A/G RATIO 0.4 (1-2); ALANINE AMINOTRANSFERASE,ALT 18 U/L (14-59); ASPARTATE AMNIOTRANSFERASE,AST 46 U/L (15-37); BILIRUBIN TOTAL 1.8 mg/dL (0.2-1.0); BLOOD UREA NITROGEN,BUN 9 mg/dL (7-18); CARBON DIOXIDE,CO2 39 mEq/L (21-32); CHLORIDE,CL 91 mEq/L (98-107); CREATININE 0.8 mg/dL (0.55-1.02); ESTIMATED GFR 85 mL/min (>60); GLUCOSE RANDOM 99 mg/dL (70-99); POTASSIUM,K 3.0 mEq/L (3.5-5.1); PROTEIN TOTAL,TP 6.1 g/dl (6.4-8.2); SODIUM,NA 134 mEq/L (136-145)
== END 2024-11-05 12:11 ==
LOC: JD.ED 01:45
DX: E87.6 Hypokalemia (principal); I50.9 Heart failure, unspecified; J45.909 Unspecified asthma, uncomplicated; N30.01 Acute cystitis with hematuria; E83.42 Hypomagnesemia; Z91.030 Bee allergy status; Z79.899 Other long term (current) drug therapy
CPT/HCPCS: 36415; 80053; 81001; 82140; 82803; 83605; 83735; 85025; 87040; 87086; 87088; 87186; 93005; 96361; 96365; 96366; 96367; 96368; 96375; 99285; A9270; J0696; J3475; J3480; J7120; 93010; 99291

== ENCOUNTER 2024-11-25 11:34 | Inpatient (IN) | payer OTHER, MEDICAID ==
[2024-11-25 12:57] LABS: APPEARANCE,URINE SLT CLOUDY (Clear); GLUCOSE,URINE NEGATIVE (Negative); OCCULT BLOOD,URINE 2+ (Negative)
[2024-11-25 13:32] LABS: BASOPHILS ABSOLUTE AUTO 0.1 K/mm3 (0.0-0.2); BASOPHILS PERCENT AUTO 0.4 % (0.0-1.0); EOSINOPHILS ABSOLUTE AUTO 0.1 K/mm3 (0.0-0.4); EOSINOPHILS PERCENT AUTO 0.6 % (0.0-6.0); IMMATURE GRAN ABSOLUTE AUTO 0.46 K/mm3 (0.00-0.05); IMMATURE GRAN PERCENT AUTO 1.9 % (0.0-0.4); LYMPHOCYTES ABSOLUTE AUTO 2.6 K/mm3 (1.0-4.8); LYMPHOCYTES PERCENT AUTO 10.5 % (24.0-44.0); MEAN PLATELET VOLUME 10.2 fl (9.4-12.3); MONOCYTES ABSOLUTE AUTO 2.4 K/mm3 (0.0-0.8); MONOCYTES PERCENT AUTO 9.8 % (0.0-8.0); NEUTROPHILS ABSOLUTE AUTO 18.6 K/mm3 (1.8-7.7); NEUTROPHILS PERCENT AUTO 76.8 % (41.0-71.0); NRBC ABSOLUTE 0.00 (0.00-0.02); NRBC PERCENT 0.0 % (0.0-0.2); PLATELET COUNT,PLT 306 K/mm3 (150-400); RED BLOOD CELL COUNT 3.00 M/mm3 (4.10-5.30); WHITE BLOOD CELL COUNT,WBC 24.21 K/mm3 (3.9-11.3)
[2024-11-25 13:57] LABS: A/G RATIO 0.3 (1-2); ALANINE AMINOTRANSFERASE,ALT 27.0 U/L (14-59); ASPARTATE AMNIOTRANSFERASE,AST 83.0 U/L (15-37); BILIRUBIN TOTAL 4.3 mg/dL (0.2-1.0); BLOOD UREA NITROGEN,BUN 17.0 mg/dL (7-18); CHLORIDE,CL 97.0 mEq/L (98-107); EST CRCL DRUG DOSING (CG) 21.8 mL/min; ESTIMATED GFR 22.0 mL/min (>60); GLUCOSE RANDOM 78.0 mg/dL (70-99); PROTEIN TOTAL,TP 7.6 g/dl (6.4-8.2); SODIUM,NA 130.0 mEq/L (136-145)
[2024-11-25 13:58] LABS: POTASSIUM,K 6.6 mEq/L (3.5-5.1)
[2024-11-25 13:59] LABS: CARBON DIOXIDE,CO2 26.0 mEq/L (21-32); CREATININE 2.5 mg/dL (0.55-1.02)
[2024-11-25 14:03] LABS: LACTIC ACID 2.6 mmol/L (0.4-2.0)
[2024-11-25] MEDS: Sodium Chloride 0.9% 10 ML Syringe FLUSH PRN (14:35)
[2024-11-25] MEDS: cefTRIAXone 2 GM in Water For Injection, Sterile 20 ML IVPUSH ONE (14:36)
[2024-11-25] MEDS: Calcium Gluconate 10% 1 GM/10 ML SDV IVPUSH ONE (14:37)
[2024-11-25] MEDS: Heparin Sodium 5,000 Units/ML Vial SUBCUT SCH (16:42)
[2024-11-25] MEDS: Ondansetron 4 MG/2 ML SDV IV PRN (20:06)
[2024-11-25 20:31] LABS: BLOOD UREA NITROGEN,BUN 16.0 mg/dL (7-18); CARBON DIOXIDE,CO2 25.0 mEq/L (21-32); CHLORIDE,CL 100.0 mEq/L (98-107); CREATININE 2.3 mg/dL (0.55-1.02); EST CRCL DRUG DOSING (CG) 23.7 mL/min; ESTIMATED GFR 24.0 mL/min (>60); GLUCOSE RANDOM 76.0 mg/dL (70-99); SODIUM,NA 131.0 mEq/L (136-145)
[2024-11-25 20:40] LABS: POTASSIUM,K 6.1 mEq/L (3.5-5.1)
[2024-11-26 07:33] LABS: MEAN PLATELET VOLUME 10.8 fl (9.4-12.3); NRBC ABSOLUTE 0.00 (0.00-0.02); NRBC PERCENT 0.0 % (0.0-0.2); PLATELET COUNT,PLT 320 K/mm3 (150-400); RED BLOOD CELL COUNT 2.62 M/mm3 (4.10-5.30); WHITE BLOOD CELL COUNT,WBC 26.87 K/mm3 (3.9-11.3)
[2024-11-26 07:52] LABS: INR 2.34
[2024-11-26 07:56] LABS: A/G RATIO 0.3 (1-2); ALANINE AMINOTRANSFERASE,ALT 25.0 U/L (14-59); ASPARTATE AMNIOTRANSFERASE,AST 83.0 U/L (15-37); BILIRUBIN TOTAL 3.7 mg/dL (0.2-1.0); BLOOD UREA NITROGEN,BUN 18.0 mg/dL (7-18); CARBON DIOXIDE,CO2 24.0 mEq/L (21-32); CHLORIDE,CL 100.0 mEq/L (98-107); CREATININE 2.3 mg/dL (0.55-1.02); EST CRCL DRUG DOSING (CG) 23.7 mL/min; ESTIMATED GFR 24.0 mL/min (>60); GLUCOSE RANDOM 61.0 mg/dL (70-99); POTASSIUM,K 5.9 mEq/L (3.5-5.1); PROTEIN TOTAL,TP 7.2 g/dl (6.4-8.2); SODIUM,NA 132.0 mEq/L (136-145)
[2024-11-26] MEDS: Lactulose Soln 10 GM/15 ML 30 ML UD Cup PO SCH (08:01)
[2024-11-26] MEDS: cefTRIAXone 2 GM in Water For Injection, Sterile 20 ML IVPUSH SCH (12:11)
[2024-11-27 04:52] LABS: MEAN PLATELET VOLUME 10.6 fl (9.4-12.3); NRBC ABSOLUTE 0.00 (0.00-0.02); NRBC PERCENT 0.0 % (0.0-0.2); PLATELET COUNT,PLT 271 K/mm3 (150-400); RED BLOOD CELL COUNT 2.66 M/mm3 (4.10-5.30); WHITE BLOOD CELL COUNT,WBC 24.74 K/mm3 (3.9-11.3)
[2024-11-27 05:12] LABS: INR 2.53
[2024-11-27 05:30] LABS: A/G RATIO 0.4 (1-2); ALANINE AMINOTRANSFERASE,ALT 25.0 U/L (14-59); ASPARTATE AMNIOTRANSFERASE,AST 79.0 U/L (15-37); BILIRUBIN TOTAL 3.2 mg/dL (0.2-1.0); BLOOD UREA NITROGEN,BUN 19.0 mg/dL (7-18); CARBON DIOXIDE,CO2 25.0 mEq/L (21-32); CHLORIDE,CL 101.0 mEq/L (98-107); CREATININE 2.3 mg/dL (0.55-1.02); EST CRCL DRUG DOSING (CG) 23.7 mL/min; ESTIMATED GFR 24.0 mL/min (>60); GLUCOSE RANDOM 83.0 mg/dL (70-99); PROTEIN TOTAL,TP 7.1 g/dl (6.4-8.2); SODIUM,NA 134.0 mEq/L (136-145)
[2024-11-27 05:48] LABS: POTASSIUM,K 5.3 mEq/L (3.5-5.1)
[2024-11-27] MEDS: Formoterol/Mometasone 200-5 MCG 8.8 GM Inhaler IH SCH (11:18)
[2024-11-27] MEDS: Octreotide 100 MCG/ML SDV SUBCUT SCH (14:49)
[2024-11-27] MEDS: Albumin 25% 12.5 GM/50 ML BAG IV SCH (21:09)
[2024-11-28 05:54] LABS: MEAN PLATELET VOLUME 10.2 fl (9.4-12.3); NRBC ABSOLUTE 0.02 (0.00-0.02); NRBC PERCENT 0.1 % (0.0-0.2); PLATELET COUNT,PLT 272 K/mm3 (150-400); RED BLOOD CELL COUNT 2.63 M/mm3 (4.10-5.30); WHITE BLOOD CELL COUNT,WBC 22.30 K/mm3 (3.9-11.3)
[2024-11-28 06:35] LABS: A/G RATIO 0.7 (1-2); ALANINE AMINOTRANSFERASE,ALT 22.0 U/L (14-59); ASPARTATE AMNIOTRANSFERASE,AST 65.0 U/L (15-37); BILIRUBIN TOTAL 3.2 mg/dL (0.2-1.0); BLOOD UREA NITROGEN,BUN 20.0 mg/dL (7-18); CARBON DIOXIDE,CO2 24.0 mEq/L (21-32); CHLORIDE,CL 97.0 mEq/L (98-107); CREATININE 2.6 mg/dL (0.55-1.02); EST CRCL DRUG DOSING (CG) 20.96 mL/min; ESTIMATED GFR 21.0 mL/min (>60); GLUCOSE RANDOM 109.0 mg/dL (70-99); POTASSIUM,K 5.2 mEq/L (3.5-5.1); PROTEIN TOTAL,TP 7.5 g/dl (6.4-8.2); SODIUM,NA 133.0 mEq/L (136-145)
[2024-11-28] MEDS: Hydrocortisone Sodium Succinate 100 MG/2 ML SDV IVPUSH ONE (12:16)
== END 2024-11-28 13:37 | DRG 698 ==
LOC: JD.ED 11:34 → JD.MS 14:58
PROVIDERS: ADMIT Internal Medicine; ATTEND Family Medicine
DX: T83.511A Infection and inflammatory reaction due to indwelling urethral catheter, initial encounter (principal); A41.9 Sepsis, unspecified organism; K76.7 Hepatorenal syndrome; R65.20 Severe sepsis without septic shock; N17.9 Acute kidney failure, unspecified; N10 Acute pyelonephritis; I50.42 Chronic combined systolic (congestive) and diastolic (congestive) heart failure; N30.01 Acute cystitis with hematuria; Z66 Do not resuscitate; E87.5 Hyperkalemia; B96.20 Unspecified Escherichia coli [E. coli] as the cause of diseases classified elsewhere; K76.82 Hepatic encephalopathy; G89.29 Other chronic pain; F41.9 Anxiety disorder, unspecified; K70.31 Alcoholic cirrhosis of liver with ascites; E86.0 Dehydration; Z79.899 Other long term (current) drug therapy
CPT/HCPCS: 36415; 71045; 71045-26; 80048; 80053; 81001; 82140; 82533; 83605; 83735; 84132; 85025; 85027; 85610; 86140; 87040; 87086; 87088; 87186; 87641; 93005; 93010; 94640; 94761; 97110-GP; 97162-GP; 97530-GP; 99285; A4216; A9270-GY; J0612; J0696; J1644; J1650; J1720; J2354-JB-GY; J2405; J2765; J3490; J7030; P9047